=== PATIENT | male | born 1955 | race Caucasian/White ===

== ENCOUNTER → 2020-04-22 | Outpatient (CLI) | payer OTHER ==
[~2020-04-22] MED LIST: CHOL10003; CTLP20T; ESCI20TA38 PO; HYDR1TAB8 OP; KETO-22 PO; LEVO500T69 PO; LISI10TA PO; MULT-608; MULT1TAB63; NEXIUM; NF-ESOM40C; NIAC1000 PO; OMEGA; ONDAN4ODT PO; PRV20T PO; SYNTHROID PO; THYROID; [UNRECOGNIZED DRUG - OTHER]
--- NOTE | 2020-04-22 13:03 | Diagnostic Imaging Report ---
INDICATION: Cough and nausea. Time of exam 12:45 p.m. Correlation is made with prior chest from 03/03/2014. FINDINGS: The heart size is normal. The pulmonary vascularity is unremarkable. The lungs are clear. No infiltrate, effusion or pneumothorax is detected. IMPRESSION: No acute cardiopulmonary process is detected. Dictated by: Dictated on workstation # [id number]
== END ==
LOC: RAD 12:21
PROVIDERS: ATTEND Family Medicine
DX: J18.9 Pneumonia, unspecified organism (principal)
CPT/HCPCS: 71046